=== PATIENT | male | born 1950 | race African-American/Black ===

== ENCOUNTER 2020-10-19 04:40 | Day surgery (SDC) | payer OTHER ==
[2020-10-19 11:21] VITALS: BMI 28.5
[2020-10-19] MEDS ORDERED: ONDANSETRON 4 MG/2 ML VIAL IVPUSH PRN (12:51)
[2020-10-19] MEDS ORDERED: oxyCODONE HCL 5 MG TABLET PO PRN (12:51)
[2020-10-19] MEDS ORDERED: LACTATED RINGERS SOLUTION 1,000 ML IV SCH (13:00)
[2020-10-19] MEDS ORDERED: ceFAZolin SODIUM 1 GM VIAL IVPB ONE (13:30)
[2020-10-19] MEDS ORDERED: hydrALAZINE HCL 20 MG/ML VIAL ONE (14:35)
[2020-10-19] MEDS ORDERED: hydrALAZINE HCL 20 MG/ML VIAL IVPUSH ONE ×2 (14:50→15:05)
[2020-10-19] MEDS ORDERED: hydrALAZINE HCL 20 MG/ML VIAL IVPUSH PRN (15:25)
[2020-10-19] MEDS ORDERED: LABETALOL HCL 5 MG/1 ML (100MG/20 ML VIAL) IVPUSH PRN (15:26)
[2020-10-19] MEDS ORDERED: LABETALOL HCL 5 MG/1 ML (100MG/20 ML VIAL) IVPUSH ONE ×2 (15:32→15:39)
[2020-10-19] MEDS: metFORMIN HCL 500 MG TABLET (FP) PO SCH (18:12)
[2020-10-19] MEDS: INSULIN (LEVEMIR) 100 UNITS/ML UNITS SQ SCH (22:49)
[2020-10-20] MEDS: metFORMIN HCL 500 MG TABLET (FP) PO SCH (06:20)
[2020-10-20] MEDS: INSULIN (LEVEMIR) 100 UNITS/ML UNITS SQ SCH (09:20)
[2020-10-20] MEDS ORDERED: amLODIPine BESYLATE 5 MG TABLET (FP) PO SCH (10:00)
[2020-10-20 10:29] VITALS: BP 184/80; PULSE 47; TEMP 98.3
== END 2020-10-20 11:32 | disposition home or self-care (01) ==
LOC: JASU-SURG 04:40 → JASUSAT 04:40 → J5S 16:20 → JASUSAT 10-20 11:32
PROVIDERS: ATTEND Urology
PROC: 0VT08ZZ Resection of Prostate, Via Natural or Artificial Opening Endoscopic (ICD-10-PCS; principal; 2020-10-19 13:30)
DX: C61 Malignant neoplasm of prostate (principal); N40.0 Benign prostatic hyperplasia without lower urinary tract symptoms; N32.0 Bladder-neck obstruction; I10 Essential (primary) hypertension; E11.9 Type 2 diabetes mellitus without complications
CPT/HCPCS: 82962; 86850; 86900; 86901; 88305-TC; 94760